=== PATIENT | female | born 1950 | race Caucasian/White ===

== ENCOUNTER 2018-09-27 23:33 | Emergency (ER) | payer MEDICARE ==
[2018-09-28] MEDS ORDERED: Acetaminophen 500 MG TAB ONE (00:32)
--- NOTE | 2018-09-28 08:48 | RAD ---
LEFT SHOULDER RADIOGRAPHS 3 VIEWS: DATE: 09/28/2018. PROVIDED CLINICAL HISTORY: Left arm pain status post injury. FINDINGS: There is no evidence for a fracture or other acute osseous abnormality. If there is persistent clini devon concern, conservative management and followup imaging is advised. IMPRESSION: As above. POS: [facility]
--- NOTE | 2018-09-28 08:49 | RAD ---
LEFT ELBOW RADIOGRAPHS 4 VIEWS: DATE: 09/28/2018. PROVIDED CLINICAL HISTORY: Left elbow pain status post injury. FINDINGS: There is no evidence for a fracture or other acute osseous abnormality. If there is persistent clini devon concern, conservative management and followup imaging are advised. IMPRESSION: As above. POS: [facility]
== END 2018-09-28 01:06 | disposition home or self-care (01) ==
LOC: ERS 23:33
DX: S50.312A Abrasion of left elbow, initial encounter (principal); S00.212A Abrasion of left eyelid and periocular area, initial encounter; S00.81XA Abrasion of other part of head, initial encounter; E03.9 Hypothyroidism, unspecified; F32.9 Major depressive disorder, single episode, unspecified; F17.210 Nicotine dependence, cigarettes, uncomplicated; Z79.82 Long term (current) use of aspirin; Z79.899 Other long term (current) drug therapy; W19.XXXA Unspecified fall, initial encounter

== ENCOUNTER 2018-10-11 20:58 | Emergency (ER) | payer MEDICARE ==
[2018-10-11] MEDS ORDERED: Proparacaine 0.5% Opth 15 ML BOT ONE (21:14)
[2018-10-11] MEDS ORDERED: Fluorescein Opthalmic Strip ONE (21:14)
[2018-10-11 21:50] LABS: #Eosinphils 0.1 thou/uL (0.0-0.7); #Lymphocytes 2.2 thou/uL (1.20-3.40); #Monocytes 0.8 thou/uL (0.11-0.59); #Neutrophils 8.7 thou/uL (1.40-6.50); %Basophils 0.4 % (0.0-1.0); %Eosinophils 0.6 % (0.0-10.0); %Lymphocytes 18.7 % (21.0-51.0); %Monocytes 6.9 % (0.0-10.0); %Neutrophils 73.4 % (42.0-75.0); Hemoglobin 13.4 g/dL (12.0-16.0); Mean Corpuscular Volume 90.6 fL (78.0-98.0); Mean Platelet Volume 6.7 fL (7.4-10.4); Platelet Count 345 thou/uL (130-400); RBC Distribution Width 12.9 % (11.5-14.5); Red Blood Cell (RBC) Count 4.61 mill/uL (4.20-5.40); White Blood Cell (WBC) Count 11.9 thou/uL (4.8-10.8)
[2018-10-11 21:56] LABS: PTT 24.4 SEC (22.9-36.1); Prothrombin Time 12.9 SEC (12.0-14.7)
[2018-10-11] MEDS ORDERED: Fentanyl 100 MCG/2 ML VIAL ONE (21:56)
--- NOTE | 2018-10-11 22:05 | CT ---
FCT Brain WO Con: 10/11/2018 12:00 AM CLINICAL HISTORY: Right orbital pain, erythema, bleeding, epistaxis & head trauma. COMPARISON: None. FINDINGS: Hemorrhage: None. Ventricular system: Normal in size and morphology for the patient's age. Cerebral parenchyma: There is mild chronic ischemic disease of the cerebral white matter. Midline shift: None. Mass: No mass effect. Calvarium: Normal. Visualized Paranasal sinuses: There is opacification of sphenoid sinus, multiple opacified ethmoid ai r cells, and a fluid level in the right maxillary sinus. IMPRESSION: No acute intracranial abnormalities. Findings most consistent with mild chronic ischemic disease. Scattered paranasal sinus opacification.
[2018-10-11 22:11] LABS: ALT (SGPT) Less than 7 U/L (8-55); AST (SGOT) 13 U/L (5-34); Albumin 3.8 g/dL (3.4-4.8); Alkaline Phosphatase 131 U/L (40-150); Anion Gap 10 mmol/L (10-20); BUN (Urea Nitrogen) 12 mg/dL (9.8-20.1); Bilirubin, Total 0.2 mg/dL (0.2-1.2); Calc. Creatinine Clearance 0 mL/min (70-130); Calcium 8.8 mg/dL (7.8-10.44); Carbon Dioxide 28 mmol/L (23-31); Chloride 102 mmol/L (98-107); Estimated GFR-MDRD 81; Globulin 3.1 g/dL (2.4-3.5); Glucose 113 mg/dL (80-115); Potassium 3.5 mmol/L (3.5-5.1); Protein, Total 6.9 g/dL (6.0-8.3); Sodium 136 mmol/L (136-145)
--- NOTE | 2018-10-11 22:15 | CT ---
FCT OF ORBITS NONCONTRAST: CLINICAL HISTORY: Right eye pain, erythema, bleeding FINDINGS: There is disruption of the right globe, with discontinuity of the lateral scleral margin, and a large volume of intrabulbar hemorrhage as well as disruption of the lens. The possibility of retinal detac hment, given the pattern of hemorrhage is not excluded on the basis of this exam. There is prominent periorbital and preseptal hematoma. A small volume of retrobulbar hematoma is also present superolate rally. There is fracture deformity involving the medial aspect of the floor the right orbit as well a s the inferior aspect of the medial wall of the right orbit, with involvement of the superior medial aspect of the right maxillary sinus and obscuring the right maxillary antrum. Associated soft tissue prominence/hematoma of the right nasal passageway is also present and there are opacified ethmoid air cells. Mixed-density opacification of the sphenoid sinus with associated periosteal thickening likel y relates to superimposed chronic sinusitis. IMPRESSION: 1. Acute post traumatic deformity of the right globe with breach of the scleral margin, notably lat erally, large volume of intrabulbar hemorrhage with the possibility of associated retinal detachment and disruption of the ocular lens. 2. Associated fracture deformity of the inferomedial aspect of the right orbital rim and the adjacen t right maxillary sinus. 3. Emergent ophthalmology consultation is warranted. Findings conveyed via telephone to patient's ER physician, Laureano Maynard at 1005 hours, 10/11/2018. Transcribed Date/Time: 10/12/2018 7:58 AM
[2018-10-11] MEDS ORDERED: Morphine 4 MG/ML VIAL ONE (23:18)
== END 2018-10-11 23:49 | disposition short-term general hospital (02) ==
LOC: ERS 20:58
DX: S00.83XA Contusion of other part of head, initial encounter (principal); H11.31 Conjunctival hemorrhage, right eye; E03.9 Hypothyroidism, unspecified; F32.9 Major depressive disorder, single episode, unspecified; F17.210 Nicotine dependence, cigarettes, uncomplicated; Z79.891 Long term (current) use of opiate analgesic; Z79.82 Long term (current) use of aspirin; Z79.899 Other long term (current) drug therapy; W22.8XXA Striking against or struck by other objects, initial encounter
CPT/HCPCS: 36415; 70450; 70480; 80053; 85025; 85610; 85730; 96374; 96375; J2270; J3010

== ENCOUNTER 2023-11-16 08:25 | Inpatient (IN) | payer MEDICARE ==
[2023-11-16] MEDS ORDERED: methylPREDNISolone Sod Succ/PF 125 MG/2 ML VIAL ONE (08:45)
[2023-11-16] MEDS ORDERED: Magnesium 2 GM/50 ML BAG (IN WATER) ONE (08:47)
[2023-11-16 09:03] LABS: #Basophils 0.05 10x3/uL (0.0-0.2); %Basophils 0.2 % (0.0-1.0); %Eosinophils 0.1 % (0.0-10.0); %Lymphocytes 5.4 % (21.0-51.0); %Monocytes 6.3 % (0.0-10.0); %Neutrophils 87.5 % (42.0-75.0); Hematocrit 50.6 % (36.0-47.0); Hemoglobin 16.6 g/dL (12.0-16.0); Mean Corpuscular HGB CONC 32.8 g/dL (32.0-36.0); Mean Corpuscular Hemoglobin 30.1 pg (27.0-31.0); Mean Corpuscular Volume 91.8 fL (78.0-98.0); Mean Platelet Volume 9.3 fL (7.4-10.4); Platelet Count 413 10x3/uL (130-400); RBC Distribution Width 13.4 % (11.5-14.5); Red Blood Cell (RBC) Count 5.51 mill/uL (4.20-5.40)
[2023-11-16] MEDS ORDERED: Ipratropium/Albuterol 3 ML NEB ONE (09:09)
[2023-11-16] MEDS ORDERED: cefTRIAXone (ROCEPHIN) 2 GM VIAL ONE (09:11)
[2023-11-16] MEDS ORDERED: Azithromycin 500 MG VIAL ONE (09:11)
[2023-11-16] MEDS ORDERED: Sodium Chloride 0.9% 100 ML ONE (09:12)
[2023-11-16 09:26] LABS: ALT (SGPT) 6 U/L (8-55); AST (SGOT) 18 U/L (5-34); Albumin 3.8 g/dL (3.4-4.8); Alkaline Phosphatase 111 U/L (40-110); Anion Gap 21 mmol/L (10-20); BUN (Urea Nitrogen) 14 mg/dL (9.8-20.1); Bilirubin, Total 0.7 mg/dL (0.2-1.2); Calc. Creatinine Clearance 0 mL/min (70-130); Calcium 9.8 mg/dL (7.8-10.44); Carbon Dioxide 26 mmol/L (23-31); Chloride 99 mmol/L (98-107); Estimated GFR 90; Glucose 126 mg/dL (83-110); Potassium 3.9 mmol/L (3.5-5.1); Protein, Total 7.8 g/dL (5.8-8.1); Sodium 142 mmol/L (136-145)
[2023-11-16 09:32] LABS: Troponin I 0.011 ng/mL (< 0.028)
[2023-11-16] MEDS ORDERED: Ondansetron ODT 4 MG TAB SL PRN (11:30)
[2023-11-16] MEDS ORDERED: Ondansetron PF 4 MG/2 ML Vial IVP PRN (11:30)
[2023-11-16] MEDS ORDERED: Acetaminophen 325 MG TAB PO PRN (12:56)
[2023-11-16 13:12] LABS: Troponin I 0.015 ng/mL (< 0.028)
[2023-11-16 15:08] VITALS: BMI 19.3
[2023-11-16 16:31] LABS: Troponin I 0.012 ng/mL (< 0.028)
[2023-11-16] MEDS: methylPREDNISolone Sod Succ 40 MG VIAL IVP SCH (20:02)
[2023-11-17 05:56] LABS: #Basophils Less than 0.03 10x3/uL (0.0-0.2); #Eosinphils Less than 0.03 10x3/uL (0.0-0.7); %Basophils 0.1 % (0.0-1.0); %Lymphocytes 5.1 % (21.0-51.0); %Monocytes 3.8 % (0.0-10.0); %Neutrophils 90.3 % (42.0-75.0); Hematocrit 39.4 % (36.0-47.0); Hemoglobin 12.9 g/dL (12.0-16.0); Mean Corpuscular HGB CONC 32.7 g/dL (32.0-36.0); Mean Corpuscular Hemoglobin 29.7 pg (27.0-31.0); Mean Corpuscular Volume 90.8 fL (78.0-98.0); Mean Platelet Volume 9.3 fL (7.4-10.4); Platelet Count 365 10x3/uL (130-400); RBC Distribution Width 13.5 % (11.5-14.5); Red Blood Cell (RBC) Count 4.34 mill/uL (4.20-5.40)
[2023-11-17 06:07] LABS: Anion Gap 15 mmol/L (10-20); BUN (Urea Nitrogen) 22 mg/dL (9.8-20.1); Calc. Creatinine Clearance 63 mL/min (70-130); Carbon Dioxide 28 mmol/L (23-31); Chloride 104 mmol/L (98-107); Estimated GFR 93; Glucose 112 mg/dL (83-110); Potassium 3.9 mmol/L (3.5-5.1); Sodium 143 mmol/L (136-145)
[2023-11-17 08:27] VITALS: BMI 19.3
[2023-11-17] MEDS: cefTRIAXone\\ROCEPHIN 1 GM in Sodium Chloride 0.9% 100 ML IVPB SCH (08:31)
[2023-11-17] MEDS: Enoxaparin 40 MG (0.4 mL) SYRINGE SC SCH (08:32)
[2023-11-17] MEDS ORDERED: Guaifenesin DM 100-10/5 ML UDCUP PO PRN (09:14)
[2023-11-17] MEDS: Benzonatate 100 MG CAP PO SCH ×2 (09:25→15:18)
[2023-11-17] MEDS: FLUoxetine HCl 20 MG CAP PO SCH (09:25)
[2023-11-17 13:59] LABS: Legionella Urinary Ag Negative (Negative); Strep pneumo Urine Ag NEGATIVE (NEGATIVE)
[2023-11-17] MEDS: hydrALAZINE 25 MG TAB PO SCH (23:21)
[2023-11-18 07:08] LABS: #Basophils Less than 0.03 10x3/uL (0.0-0.2); #Eosinphils Less than 0.03 10x3/uL (0.0-0.7); %Basophils 0.1 % (0.0-1.0); %Lymphocytes 6.2 % (21.0-51.0); %Monocytes 5.3 % (0.0-10.0); %Neutrophils 87.9 % (42.0-75.0); Hematocrit 42.9 % (36.0-47.0); Hemoglobin 13.6 g/dL (12.0-16.0); Mean Corpuscular HGB CONC 31.7 g/dL (32.0-36.0); Mean Corpuscular Hemoglobin 29.9 pg (27.0-31.0); Mean Corpuscular Volume 94.3 fL (78.0-98.0); Mean Platelet Volume 9.2 fL (7.4-10.4); Platelet Count 382 10x3/uL (130-400); RBC Distribution Width 13.4 % (11.5-14.5); Red Blood Cell (RBC) Count 4.55 mill/uL (4.20-5.40)
[2023-11-18 07:35] LABS: Anion Gap 13 mmol/L (10-20); BUN (Urea Nitrogen) 21 mg/dL (9.8-20.1); Calc. Creatinine Clearance 69 mL/min (70-130); Carbon Dioxide 32 mmol/L (23-31); Chloride 103 mmol/L (98-107); Estimated GFR 95; Glucose 103 mg/dL (83-110); Potassium 4.5 mmol/L (3.5-5.1); Sodium 143 mmol/L (136-145)
[2023-11-18] MEDS: hydrALAZINE 25 MG TAB PO SCH (08:26)
[2023-11-18] MEDS: Levothyroxine Sodium 125 MCG TAB PO SCH (08:26)
[2023-11-18] MEDS ORDERED: Non-Formulary Item 1 EACH (Fluoxetine Hcl [Fluoxetine Hcl] 20 MG Tablet) PO SCH (09:00)
[2023-11-18] MEDS: hydrALAZINE 20 MG/ML VIAL SLOW IVP PRN (13:22)
[2023-11-18] MEDS: Lorazepam 0.5 MG TAB PO PRN (13:29)
[2023-11-19 08:21] LABS: #Basophils 0.03 10x3/uL (0.0-0.2); #Eosinphils Less than 0.03 10x3/uL (0.0-0.7); %Basophils 0.3 % (0.0-1.0); %Lymphocytes 9.7 % (21.0-51.0); %Monocytes 5.9 % (0.0-10.0); %Neutrophils 83.2 % (42.0-75.0); Hematocrit 44.1 % (36.0-47.0); Hemoglobin 14.3 g/dL (12.0-16.0); Mean Corpuscular HGB CONC 32.4 g/dL (32.0-36.0); Mean Corpuscular Hemoglobin 29.5 pg (27.0-31.0); Mean Corpuscular Volume 90.9 fL (78.0-98.0); Mean Platelet Volume 9.2 fL (7.4-10.4); Platelet Count 409 10x3/uL (130-400); RBC Distribution Width 13.5 % (11.5-14.5); Red Blood Cell (RBC) Count 4.85 mill/uL (4.20-5.40)
[2023-11-19 08:34] LABS: Anion Gap 12 mmol/L (10-20); BUN (Urea Nitrogen) 18 mg/dL (9.8-20.1); Calc. Creatinine Clearance 68 mL/min (70-130); Calcium 9.2 mg/dL (7.8-10.44); Carbon Dioxide 33 mmol/L (23-31); Chloride 101 mmol/L (98-107); Estimated GFR 94; Glucose 88 mg/dL (83-110); Sodium 142 mmol/L (136-145)
[2023-11-19 16:47] VITALS: BP 148/73; TEMP 97.7
== END 2023-11-19 16:52 | disposition home or self-care (01) | DRG 189 ==
LOC: ERS 08:25 → T4-B 11:22
PROVIDERS: ADMIT Internal Medicine; ATTEND Hospitalist
DX: J96.01 Acute respiratory failure with hypoxia (principal); J44.1 Chronic obstructive pulmonary disease with (acute) exacerbation; E03.9 Hypothyroidism, unspecified; F17.210 Nicotine dependence, cigarettes, uncomplicated; Z98.51 Tubal ligation status; Z98.890 Other specified postprocedural states; F41.9 Anxiety disorder, unspecified; I10 Essential (primary) hypertension
CPT/HCPCS: 36415; 71045; 80048; 80053; 83605; 83880; 84484; 85025; 87040; 87070; 87205; 87449; 87899; 93005; 94640; 96365; 96367; 96375; J0360; J0456; J0696; J1650; J2920; J2930; J3475; J3490; J7620